=== PATIENT | male | born 1960 | race Caucasian/White ===

== ENCOUNTER 2022-04-20 16:58 | Outpatient (CLI) | payer OTHER, SELFPAY ==
--- NOTE | ~2022-04-20 | MR_ITS ---
EXAMINATION: MR knee RT wo con DATE: 04/20/2022 17:41 INDICATION: Posterior and medial right knee pain TECHNIQUE: Magnetic resonance imaging (MRI) of the right knee was performed without intravenous contr ast. Sequences included axial PD-weighted FS FSE, coronal PD-weighted FSE and PD-weighted FS FSE, sag ittal PD-weighted FSE, and sagittal T2-weighted FS FSE. COMPARISON: None. FINDINGS: Medial compartment: Severe diffuse cartilage thinning with large areas of full-thickness cartilage loss. Moderate osteoph ytosis. Horizontally oriented tear at the junction of the body and anterior horn with displacement of a flap of meniscal tissue into the medial joint recess. Oblique undersurface tear of the posterior h orn. Considerable meniscal thinning, fraying, and degenerative signal change. Mild medial extrusion. Lateral compartment: Mild diffuse cartilage thinning and osteophytosis. Intact meniscus. Patellofemoral compartment: Focal partial thickness cartilage fissure on the lateral aspect of the femoral groove. Mild patellar osteophytosis. Ligaments and tendons: ACL, PCL, MCL, and LCL are intact. The remaining flexor and extensor tendons are intact. Fluid: Small volume joint fluid. Hypertrophied edematous synovium. Moderate-sized Edge's cyst. Millimeters loose body in the lateral aspect of the suprapatellar joint recess. Osseous/other: No suspicious focal or diffuse marrow signal. IMPRESSION: 1. Complex tears and considerable degenerative change in the medial meniscus. 2. Tricompartmental osteoarthritic changes, severe in the medial compartment. 3. Small joint effusion with synovitis and a loose joint body. 4. Moderate Edge's cyst. Reviewed, dictated and finalized at location K. [employer]
== END 2022-04-20 16:59 | disposition home or self-care (01) ==
LOC: ANHIMG 16:59
PROVIDERS: PCP Family Medicine; Visit Provider Physician Assistant Surgical
DX: M17.11 Unilateral primary osteoarthritis, right knee (principal); S83.231A Complex tear of medial meniscus, current injury, right knee, initial encounter; X58.XXXA Exposure to other specified factors, initial encounter; M71.21 Synovial cyst of popliteal space [Baker], right knee; M25.461 Effusion, right knee
CPT/HCPCS: 73721